=== PATIENT | female | born 1965 | race Caucasian/White ===

== ENCOUNTER 2017-09-18 07:10 | Emergency (ER) | payer OTHER ==
[~2017-09-18] VITALS: Ht 170.2 cm; Wt 79.7 kg
[2017-09-18 07:53] LABS: HEMATOCRIT 37.5 % (36.0-46.0); HEMOGLOBIN 13.1 G/DL (11.9-15.5); MCHC 34.9 G/DL (30.0-36.0); MCV 88.7 FL (83-99); PLATELET COUNT 209 K/uL (156-360); RBC DIS.WIDTH-CV 12.2 % (11.8-14.6); RBC DIS.WIDTH-SD 39.2 % (39-53); RED BLOOD COUNT 4.23 M/uL (3.80-5.20); WHITE BLOOD COUNT 4.8 K/uL (4.1-10.2)
[2017-09-18 08:42] LABS: CHLORIDE 106 MEQ/L (99-109); POTASSIUM 3.5 MEQ/L (3.7-5.4); SODIUM 140 MEQ/L (136-147)
[2017-09-18 08:47] LABS: CREATININE 0.3 MG/DL (0.6-1.3); GFR ESTIMATE (CALCULATED) > 59 mL/min/; GLUCOSE 154 mg/dL (70-99); UREA NITROGEN (BUN) 15 mg/dL (9-23)
[2017-09-18 08:59] LABS: APPEARANCE CLEAR ((CLEAR)); BILIRUBIN NEGATIVE; BLOOD NEGATIVE; COLOR AMBER ((YELLOW)); GLUCOSE (STRIP) NEGATIVE; KETONES NEGATIVE; LEUKOCYTES NEGATIVE; NITRITE POSITIVE; PROTEIN (STRIP) NEGATIVE; SPECIFIC GRAVITY 1.003 (1.000-1.030); UROBILINOGEN 0.2 MG/DL (0.2-1.0)
[2017-09-18 09:22] LABS: EPITHELIAL CELLS 1+ /HPF; MUCUS NONE SEEN /LPF; RED BLOOD CELLS NONE SEEN /HPF (0-5)
[2017-09-18 09:23] LABS: BACTERIA RARE /HPF; WHITE BLOOD CELLS RARE /HPF (0-5)
[2017-09-18] MEDS ORDERED: ZOFRAN ODT8 MG PO (09:48)
[2017-09-18] MEDS ORDERED: NORCO 5/3251 TABLET PO (09:48)
[2017-09-18] MEDS ORDERED: FLOMAX0.4 MG PO (09:48)
[2017-09-18 10:08] VITALS: BP 139/84
[2017-09-19] MEDS ORDERED: VIACTIV SOFT C1 EACH PO (17:52)
[2017-09-19] MEDS ORDERED: MENOPAUSE SUPPO20 MG PO (17:52)
[2017-09-19] MEDS ORDERED: CLARITIN,ALAVAR10 MG PO (17:52)
[2017-09-19] MEDS ORDERED: ADULT ASPIRIN81 MG PO (17:52)
== END 2017-09-18 10:08 | disposition home or self-care (01) ==
LOC: EME 07:10
PROVIDERS: Physician Assistant
DX: N13.2 Hydronephrosis with renal and ureteral calculous obstruction (principal); Z90.710 Acquired absence of both cervix and uterus
CPT/HCPCS: 74176; 80048; 81003; 85027; J1885; J7030

== ENCOUNTER 2017-09-19 14:35 | Observation (INO) | payer OTHER ==
[~2017-09-19] VITALS: Ht 170.2 cm; Wt 84.5 kg
[~2017-09-19 14:35] MED LIST: FLOMAX0.4 MG PO; NORCO 5/3251 TABLET PO; ZOFRAN ODT8 MG PO
[2017-09-19 15:24] LABS: HEMATOCRIT 38.2 % (36.0-46.0); HEMOGLOBIN 12.9 G/DL (11.9-15.5); MCH 30.6 PG (29.0-34.0); MCHC 33.8 G/DL (30.0-36.0); MCV 90.5 FL (83-99); PLATELET COUNT 207 K/uL (156-360); RBC DIS.WIDTH-CV 12.1 % (11.8-14.6); RBC DIS.WIDTH-SD 40.1 % (39-53); RED BLOOD COUNT 4.22 M/uL (3.80-5.20); WHITE BLOOD COUNT 9.6 K/uL (4.1-10.2)
[2017-09-19 15:27] LABS: APPEARANCE CLEAR ((CLEAR)); BILIRUBIN NEGATIVE; BLOOD NEGATIVE; COLOR YELLOW ((YELLOW)); GLUCOSE (STRIP) NEGATIVE; KETONES 5; LEUKOCYTES TRACE; NITRITE NEGATIVE; PROTEIN (STRIP) NEGATIVE; SPECIFIC GRAVITY 1.021 (1.000-1.030); UROBILINOGEN 0.2 MG/DL (0.2-1.0)
[2017-09-19 15:38] LABS: ALBUMIN 4.1 g/dL (3.2-4.8); CHLORIDE 105 mEq/L (99-109); SODIUM 140 mEq/L (136-147)
[2017-09-19 15:39] LABS: BACTERIA NONE SEEN /HPF; EPITHELIAL CELLS NONE SEEN /HPF; MUCUS TRACE /LPF; WHITE BLOOD CELLS 0-5 /HPF (0-5)
[2017-09-19 15:40] LABS: GLUCOSE 137 mg/dL (70-99)
[2017-09-19 15:41] LABS: TOTAL PROTEIN 7.2 g/dL (6.4-8.3)
[2017-09-19 15:42] LABS: TOTAL BILIRUBIN 0.5 mg/dL (0.0-1.0)
[2017-09-19 15:44] LABS: ALKALINE PHOSPHATASE 57 IU/L (3-129)
[2017-09-19 15:45] LABS: UREA NITROGEN (BUN) 16 mg/dL (9-23)
[2017-09-19 15:46] LABS: AST (GOT) 17 IU/L (2-34)
[2017-09-19 15:47] LABS: ALT (GPT) 10 IU/L (3-49)
[2017-09-19 15:48] LABS: GFR ESTIMATE (CALCULATED) > 59 mL/min/; POTASSIUM 4.6 mEq/L (3.7-5.4)
[2017-09-19] MEDS ORDERED: ADULT ASPIRIN81 MG PO (17:52)
[2017-09-19] MEDS ORDERED: MENOPAUSE SUPPO20 MG PO (17:52)
[2017-09-19] MEDS ORDERED: CLARITIN,ALAVAR10 MG PO (17:52)
[2017-09-19] MEDS ORDERED: VIACTIV SOFT C1 EACH PO (17:52)
[2017-09-19 20:01] VITALS: BP 125/79
[2017-09-19 23:37] VITALS: BP 86/51
[2017-09-20 05:43] LABS: BASOPHIL (%) 0.2 % (0-1); EOSINOPHIL (%) 0.2 % (0-5); HEMATOCRIT 35.8 % (36.0-46.0); HEMOGLOBIN 12.1 G/DL (11.9-15.5); IMMATURE GRANULOCYTE (%) 0.2 % (0.0-0.7); LYMPHOCYTE COUNT 1.6 K/uL (1.0-2.8); MCH 30.3 PG (29.0-34.0); MCHC 33.8 G/DL (30.0-36.0); MCV 89.5 FL (83-99); MONOCYTE (%) 9.3 % (3-12); MONOCYTE COUNT 0.6 K/uL (0-0.8); NEUTROPHIL (%) 64.1 % (45-76); NEUTROPHIL COUNT 3.9 K/uL (1.8-6.4); PLATELET COUNT 199 K/uL (156-360); RBC DIS.WIDTH-CV 12.1 % (11.8-14.6); RBC DIS.WIDTH-SD 39.5 % (39-53)
[2017-09-20 06:07] LABS: CHLORIDE 109 MEQ/L (99-109); GFR ESTIMATE (CALCULATED) > 59 mL/min/; GLUCOSE 108 mg/dL (70-99); POTASSIUM 4.1 MEQ/L (3.7-5.4); SODIUM 142 MEQ/L (136-147); UREA NITROGEN (BUN) 15 mg/dL (9-23)
[2017-09-20 08:00] VITALS: BP 116/70
[2017-09-20 11:24] VITALS: BP 103/56
== END 2017-09-20 14:20 | disposition home or self-care (01) ==
LOC: EME 14:35 → EDOF 19:08 → ENRESERV 19:11 → 4SOUTH 19:56
PROVIDERS: Hospitalist; Nurse Practitioner Family
DX: N13.2 Hydronephrosis with renal and ureteral calculous obstruction (principal); Z86.19 Personal history of other infectious and parasitic diseases; Z90.710 Acquired absence of both cervix and uterus; Z80.1 Family history of malignant neoplasm of trachea, bronchus and lung; R73.9 Hyperglycemia, unspecified
CPT/HCPCS: 74176; 80048; 80053; 81003; 85025; 85027; 99281; 99285; G0378; J1170; J1650; J1885; J2405; J3010; J7030; J7050

== ENCOUNTER 2017-09-25 09:48 | Day surgery (SDC) | payer OTHER ==
[~2017-09-25] VITALS: Ht 170.2 cm; Wt 80.9 kg
[~2017-09-25 09:48] MED LIST changes: +ADULT ASPIRIN81 MG PO; +CLARITIN,ALAVAR10 MG PO; +MENOPAUSE SUPPO20 MG PO; +VIACTIV SOFT C1 EACH PO
[2017-09-25 10:27] VITALS: BP 125/71
[2017-09-25 14:15] VITALS: BP 134/69
[2017-09-25 14:58] VITALS: BP 129/62
== END 2017-09-25 14:55 | disposition home or self-care (01) ==
LOC: SDC 09:48
PROVIDERS: Urology
DX: N13.2 Hydronephrosis with renal and ureteral calculous obstruction (principal); Z95.828 Presence of other vascular implants and grafts; Z80.1 Family history of malignant neoplasm of trachea, bronchus and lung
CPT/HCPCS: 82365 90; C1726; C1769; C2625; J0131; J0690; J1100; J2405; J3010